=== PATIENT | male | born 2000 | race Caucasian/White ===

== ENCOUNTER 2021-12-31 19:10 | Emergency (ER) | payer BC ==
[2021-12-31] MEDS ORDERED: cefTRIAXone 1 GM Vial IM ONE (19:31)
[2021-12-31] MEDS ORDERED: Ketorolac 30 MG/ML SDV IM ONE (19:32)
[2021-12-31] MEDS ORDERED: cefTRIAXone 1 GM Vial ONE (20:22)
== END 2021-12-31 20:27 | disposition home or self-care (01) ==
LOC: VM.ED 19:10
DX: K04.7 Periapical abscess without sinus (principal)
CPT/HCPCS: 96372; 99282; 99283; J0696; J1885